=== PATIENT | female | born 1965 | race Caucasian/White ===

== ENCOUNTER 2016-10-01 12:10 | Inpatient (IN) | payer MEDICAID ==
--- NOTE | 2016-10-01 13:48 | ED PDOC ---
Upper Extremity Pain/Injury Time Seen by Provider: 10/01/16 12:56 Chief Complaint (Nursing): Upper Extremity Problem/Injury Chief Complaint (Provider): Right Arm Pain History Per: Patient History/Exam Limitations: no limitations Additional Complaint(s): Matilde Mendez, a 51 year old female, who has a past medical history of deep vein thrombosis and HIV presents to the ED complaining of right arm pain. The patient states that she went to the doctor but was then sent to the ER to be evaluated. As per daughter the patient was lifting a cart prior to the start of the pain. She states that the patient is not accustomed to lifting heavy things and may have pulled a muscle. Past Medical History Reviewed: Historical Data, Nursing Documentation, Vital Signs Vital Signs: Last Vital Signs Temp 98.9 F 10/01/16 12:45 Pulse 95 H 10/01/16 12:45 Resp 18 10/01/16 12:45 BP 109/78 10/01/16 12:45 Pulse Ox 99 10/01/16 12:45 - Medical History PMH: Deep Vein Thrombosis, HIV Other PMH: Neurolgia (face and Legs) - Surgical History Surgical History: No Surg Hx - Family History Family History: States: Unknown Family Hx - Home Medications Home Medications: Ambulatory Orders Medication Instructions Recorded Acetaminophen/Butalbital/Caf 1 tab PO Q4H PRN 10/01/16 [Fioricet] Atorvastatin [Lipitor] 20 mg PO HS 10/01/16 DULoxetine [Cymbalta] 60 mg PO HS 10/01/16 Elviteg/Vicenta/Emtric/Tenofo Ala 1 tab PO HS 10/01/16 [Genvoya Tablet] Gabapentin [Neurontin] 800 mg PO TID 10/01/16 Melatonin [Melatonin] 5 mg PO HS 10/01/16 Mirtazapine [Remeron] 30 mg PO HS 10/01/16 Montelukast [Singulair] 10 mg PO HS 10/01/16 QUEtiapine [Seroquel] 100 mg PO HS 10/01/16 Trazodone HCl [Trazodone HCl] 150 mg PO HS 10/01/16 Zolpidem [Ambien] 10 mg PO HS 10/01/16 hydrOXYzine Pamoate [Vistaril] 25 mg PO BID PRN 10/01/16 - Allergies Allergies/Adverse Reactions: Allergies Allergy/AdvReac Type Severity Reaction Status Date / Time No Known Allergies Allergy Unverified 09/29/12 09:54 Review of Systems Musculoskeletal: Positive for: Arm Pain (Right arm pain.) Physical Exam - Reviewed Nursing Documentation Reviewed: Yes Vital Signs Reviewed: Yes - Physical Exam Appears: Positive for: Non-toxic, No Acute Distress Skin: Positive for: Normal Color, Warm, Dry Eye Exam: Positive for: Normal appearance, EOMI, PERRL Cardiovascular/Chest: Positive for: Regular Rate, Rhythm, Chest Non Tender. Negative for: Tachycardia Respiratory: Positive for: Normal Breath Sounds. Negative for: Wheezing, Respiratory Distress Extremity: Positive for: Capillary Refill (Capillary refills are normal in right arm.), Other (5/5 strength and tone of right arm; Good pulses bilaterally ; Bruising on forearm.). Negative for: Tenderness, Pedal Edema, Deformity Neurologic/Psych: Positive for: Alert, Oriented, Gait - Laboratory Results Result Diagrams: 10/01/16 17:50 10/01/16 17:50 - ECG O2 Sat by Pulse Oximetry: 99 (RA) Pulse Ox Interpretation: Normal Medical Decision Making Medical Decision Makin Initial Impression: 51 year old female presenting with right arm pain Initial Plan: * RAD elbow right * US duplex upper extremities-demonstrates DVT to baslic and cephlaic viens. * Reevaluation-stable in ED * pt will be admitted to family practice for DVT to right upper ext. Pt with normal creatine and BUN and GFR 1.5/kg ordered 117 of lovenox ordered for pt. Scribe Attestation Documented by Maria Isabel Owen acting as a scribe for Lynsey Linder PA-C. Scribe Attestation All medical record entries made by the Scribe were at my direction and personally dictated by me. I have reviewed the chart and agree that the record accurately reflects my personal performance of the history, physical exam, medical decision making, and the department course for this patient. I have also personally directed, reviewed, and agree with the discharge instructions and disposition. Disposition - Clinical Impression Clinical Impression: DVT of upper extremity (deep vein thrombosis) - Patient ED Disposition Is Patient to be Admitted: Yes - Disposition Disposition Time: 19:36 Condition: STABLE - Pt Status Changed To: Hospital Disposition Of: Inpatient - Admit Certification Admit to Inpatient:: After my assessment, the patient will require hospitalization for at least two midnights. This is because of the severity of symptoms shown, intensity of services needed, and/or the medical risk in this patient being treated as an outpatient. - POA Present On Arrival: Deep Vein Thrombosis / PE
--- NOTE | 2016-10-01 14:51 | RAD ---
PROCEDURE: Radiographs of the right elbow. HISTORY: elbow pain COMPARISON: No prior. FINDINGS: BONES: Normal. No fracture. JOINTS: Normal. No osteoarthritis. SOFT TISSUES: Normal. JOINT EFFUSION: None. OTHER FINDINGS: None. IMPRESSION: Unremarkable radiographs of the right elbow.
[2016-10-01 18:26] LABS: BASO # 0.1 K/uL (0.0-0.2); BASO % 0.9 % (0.0-2.0); EOS # 0.3 K/uL (0.0-0.7); EOS % 2.8 % (0.0-4.0); HEMOGLOBIN 12.4 g/dL (12.0-16.0); LYMPH # 2.3 K/uL (1.0-4.3); LYMPH % 26.4 % (20.0-40.0); MEAN CELL VOLUME 92.5 fl (81.0-99.0); MEAN CORPUSCULAR HEMOGLOBIN 30.3 pg (27.0-31.0); MEAN CORPUSCULAR HGB CONC 32.7 g/dL (33.0-37.0); MEAN PLATELET VOLUME 8.9 fl (7.2-11.7); MONO # 0.8 K/uL (0.0-0.8); MONO % 8.7 % (0.0-10.0); NEUT # 5.4 K/uL (1.8-7.0); NEUT % 61.2 % (50.0-75.0); RBC 4.1 Mil/uL (3.80-5.20); RED CELL DISTRIBUTION WIDTH 14.3 % (11.5-14.5); WHITE BLOOD COUNT 8.9 K/uL (4.8-10.8)
[2016-10-01 18:37] LABS: ALB/GLOB RATIO 1.3 (1.0-2.1); ALBUMIN 4.4 g/dL (3.5-5.0); ALT/SGPT 50 U/L (9-52); AST/SGOT 35 U/L (14-36); BLOOD UREA NITROGEN 12 mg/dl (7-17); CALCIUM 9.4 mg/dL (8.4-10.2); GFR AFRICAN-AMERICAN > 60; GFR NON-AFRICAN AMERICAN 58
--- NOTE | 2016-10-01 18:39 | RAD ---
HISTORY: medical clearance COMPARISON: None available. TECHNIQUE: Chest, one view. FINDINGS: LUNGS: No focal consolidation. Please note that chest x-ray has limited sensitivity for the detection of pulmonary masses. PLEURA: No significant pleural effusion identified. No definite pneumothorax . CARDIOVASCULAR: Borderline cardiomegaly. Atherosclerotic calcifications of the aorta. OSSEOUS STRUCTURES: No acute osseous abnormality identified. VISUALIZED UPPER ABDOMEN: Unremarkable. OTHER FINDINGS: None. IMPRESSION: No focal consolidation, significant pleural effusion, or definite pneumothorax identified.
[2016-10-01 18:42] LABS: PARTIAL THROMBOPLASTIN TIME 22.6 Seconds (25.6-37.1); PROTHROMBIN TIME 11.4 Seconds (9.8-13.1)
--- NOTE | 2016-10-01 18:47 | CP.PCM.HP ---
<Sandeep Tomlinson - Last Filed: 10/01/16 21:37> History of Present Illness - History of Present Illness History of Present Illness: 51 yo F with medical history of HIV (VL: 40, CD4: 747/39 [09/07/16]), spinal stenosis, anxiety, mood disorder, previous DVT presented to ED via [facility] due to right forearm pain. Patient states right forearm pain began 2 wks ago, 'out of nowhere'. Patient states she did carry groceries that day but no more than she does usually. Patient states she noted a bump on top of right wrist with pain. Patient had been evaluated by PCP at that time and instructed to continue to monitor. Patient was seen by Psych today, continued pain and increased to elbow with redness, referred to ED for further evaluation. Noted DVT of RUE. Patient states pain is still present. Patient denies sob, chest pain, palpitations, recent travel, recent trauma or surgeries. No fever, chills. Patient states DVT of bilateral extremities 7 yrs ago (unprovoked) treated with coumadin x 3 months at that time @ [facility]. Patient does states bilateral lower leg pain has been present for months though worse since last night. Patient relates pain as musculoskeletal in nature. No calf pain/tenderness/warmth/edema. Only medication change was ART 2 wks ago, though on reviewed of eCw symptoms were present prior to medication change. PMD: Dr. Lam PMHx: HIV (VL: 40, CD4: 747/39 [09/07/16]), spinal stenosis, anxiety, mood disorder, previous DVT (b/l LE) Meds: As per chart Allergies: Seasonal Surgical history: C-sections x 2 (, ) Family history: Remarkable for mother/grandmother with heart attacks which they from. Father with possible stroke? () Social hx: No drugs, etoh, tobacco use. Present on Admission - Present on Admission Any Indicators Present on Admission: Yes History of DVT/PE: Yes Review of Systems - Review of Systems All systems: reviewed and no additional remarkable complaints except (mentioned in HPI) Past Patient History - Past Medical History & Family History Past Medical History?: Yes - Past Social History Smoking Status: Never Smoked Alcohol: None Drugs: Denies - HEMATOLOGICAL/ONCOLOGICAL Hx Human Immunodeficiency Virus (HIV): Yes - PSYCHIATRIC Hx Substance Use: No - SURGICAL HISTORY Hx Section: Yes Meds Allergies/Adverse Reactions: Allergies Allergy/AdvReac Type Severity Reaction Status Date / Time No Known Allergies Allergy Unverified 09/29/12 09:54 Physical Exam - Constitutional Appears: Well, Non-toxic, No Acute Distress - Head Exam Head Exam: ATRAUMATIC, NORMAL INSPECTION, NORMOCEPHALIC - Eye Exam Eye Exam: EOMI, Normal appearance, PERRL - ENT Exam ENT Exam: Mucous Membranes Moist - Neck Exam Neck exam: Positive for: Normal Inspection - Respiratory Exam Respiratory Exam: Clear to Auscultation Bilateral, NORMAL BREATHING PATTERN. absent: Decreased Breath Sounds, Rhonchi, Wheezes, Respiratory Distress - Cardiovascular Exam Cardiovascular Exam: REGULAR RHYTHM, RRR, +S1, +S2 - GI/Abdominal Exam GI & Abdominal Exam: Normal Bowel Sounds, Soft. absent: Tenderness - Extremities Exam Extremities exam: Positive for: pedal pulses present. Negative for: calf tenderness, pedal edema Additional comments: right forearm with redness/palpable cord and tenderness from wrist to medial epicondyle. 2+ pulses. Cap refil normal - Neurological Exam Neurological exam: Alert, Oriented x3 - Psychiatric Exam Psychiatric exam: Normal Affect, Normal Mood - Skin Skin Exam: Dry, Intact, Normal Color, Warm Results - Vital Signs Recent Vital Signs: Last Vital Signs Temp 98.9 F 10/01/16 12:45 Pulse 95 H 10/01/16 12:45 Resp 18 10/01/16 12:45 BP 109/78 10/01/16 12:45 Pulse Ox 99 10/01/16 17:34 - Labs Result Diagrams: 10/01/16 17:50 10/01/16 17:50 Labs: Laboratory Results - last 24 hr 10/01/16 10/01/16 17:50 17:50 WBC 8.9 RBC 4.10 Hgb 12.4 Hct 37.9 MCV 92.5 MCH 30.3 MCHC 32.7 L RDW 14.3 Plt Count 287 MPV 8.9 Neut % (Auto) 61.2 Lymph % (Auto) 26.4 [place] % (Auto) 8.7 Eos % (Auto) 2.8 Baso % (Auto) 0.9 Neut # 5.4 Lymph # 2.3 [place] # 0.8 Eos # 0.3 Baso # 0.1 PT 11.4 INR 1.0 APTT 22.6 L Assessment & Plan (1) DVT of upper extremity (deep vein thrombosis) Status: Acute (2) HIV (human immunodeficiency virus infection) Status: Chronic (3) Anxiety Status: Chronic (4) Mood disorder Status: Chronic (5) Insomnia Status: Chronic - Assessment and Plan (Free Text) Assessment: 51 yo F with medical history of HIV (VL: 40, CD4: 747/39 [09/07/16]), spinal stenosis, anxiety, mood disorder, previous DVT with right forearm pain x 2 wks noted to have unprovoked DVT of RUE. Last pap smear date *June 25, 2015 - PAP(-)/HPV(-) Last mammogram date *October 03, 2015 - BI-RADS 2 Plan: (1) DVT of upper extremity (deep vein thrombosis) - US duplex upper extremities-demonstrates DVT to basilic and cephalic veins of RUE. - No chest pain/sob/tachycardia - pain x 2 wks - Hemodynamically stable at this time - s/p 117mg Lovenox in ED - c/w Lovenox 80mg q12h - Genetic studies ordered - Coag studies ordered - hcg, ua, and lipid panel ordered - Likely 2nd unprovoked episode, pending labs - Continue to monitor - Will obtain u/s of bilateral lower extremities due to increased pain x 1 day and history of DVT (2) HIV (human immunodeficiency virus infection) - VL: 40, CD4: 747/39 [09/07/16] - c/w home meds at this time (Genvoya) - Medication was changed after patient's symptoms began. (3) Anxiety - Continue home meds - Stable (4) Mood disorder - Continue home meds - Stable (5) Insomnia - Continue home meds - Held trazadone at this time <Mayi Cornell - Last Filed: 10/06/16 08:45> Results - Vital Signs Recent Vital Signs: Last Vital Signs Temp 98.5 F 10/04/16 07:43 Pulse 88 10/04/16 07:43 Resp 18 10/04/16 07:43 BP 88/64 L 10/04/16 07:43 Pulse Ox 98 10/04/16 07:43 - Labs Result Diagrams: 10/02/16 06:10 10/02/16 06:10 Labs: Laboratory Results - last 24 hr 10/02/16 10/02/16 06:00 06:10 Protein C Antigen 110 Anti-Phospholipid Intrp see note Anti-Cardiolipin IgG Ab <14 Anti-Cardiolipin IgA Ab <11 Anti-Cardiolipin IgM Ab <12 Assessment & Plan - Assessment and Plan (Free Text) Plan: ATTENDING NOTE ADDENDUM PATIENT SEEN AND EXAMINED. CASE DISCUSSED WITH RESIDENT. AGREE WITH FINDINGS AND PLAN.
[2016-10-01] MEDS ORDERED: Enoxaparin 150 mg Syringe SC ONE (20:00)
[2016-10-01] MEDS ORDERED: Enoxaparin 120 mg Syringe SC ONE (22:30)
[2016-10-02 07:10] LABS: BASO # 0.1 K/uL (0.0-0.2); EOS # 0.4 K/uL (0.0-0.7); EOS % 6.1 % (0.0-4.0); HEMOGLOBIN 11.9 g/dL (12.0-16.0); LYMPH # 1.8 K/uL (1.0-4.3); MEAN CELL VOLUME 92.2 fl (81.0-99.0); MEAN CORPUSCULAR HEMOGLOBIN 31.1 pg (27.0-31.0); MEAN CORPUSCULAR HGB CONC 33.8 g/dL (33.0-37.0); MEAN PLATELET VOLUME 8.9 fl (7.2-11.7); MONO # 0.5 K/uL (0.0-0.8); MONO % 8.3 % (0.0-10.0); NEUT # 3.4 K/uL (1.8-7.0); NEUT % 55.6 % (50.0-75.0); NRBC % 0.1 % (0.0-0.0); RBC 3.81 Mil/uL (3.80-5.20); RED CELL DISTRIBUTION WIDTH 13.6 % (11.5-14.5); WHITE BLOOD COUNT 6.2 K/uL (4.8-10.8)
[2016-10-02 07:34] LABS: INR 1.1 (0.9-1.2); PROTHROMBIN TIME 12.4 Seconds (9.8-13.1)
[2016-10-02 07:35] LABS: PARTIAL THROMBOPLASTIN TIME 37.4 Seconds (25.6-37.1)
[2016-10-02 07:40] LABS: BLOOD UREA NITROGEN 12 mg/dl (7-17); CALCIUM 8.7 mg/dL (8.4-10.2); GFR AFRICAN-AMERICAN > 60; GFR NON-AFRICAN AMERICAN 58; HDL CHOLESTEROL 36 MG/DL (30-70)
[2016-10-02 07:51] LABS: LDL CHOLESTEROL 111 mg/dL (0-129)
[2016-10-02] MEDS: Potassium Chloride 20 mEq ER Tab PO SCH (09:02)
[2016-10-02] MEDS: Enoxaparin 80 mg Syringe SC SCH ×2 (09:02→21:53)
--- NOTE | 2016-10-02 10:01 | PQF HIV ---
Dr. Rodriguez, Please clarify the status of patient's HIV: Asymptomatic versus Symptomatic Other (please specify) Clinically unable to determine Unknown Please also document all associated manifestations of HIV H and P: Impression includes: HIV: VL: 40, CD4: 747/39 [09/07/16]) This form is a permanent part of the medical record Clarification of your documentation is requested to better reflect the severity of illness and intensity of treatment of your patient. Indicators present [] Documented diagnosis of HIV [] CD4 count: [] [] Other: [] Location in the medical record that reflects the above clinical findings: [] Other Treatment Provided: [] PHYSICIAN'S RESPONSE If possible, based on your medical judgment, please clarify the clinical classification for this patient. [] Asymptomatic HIV Status: without any history of (or current) AIDS Defining Illnesses of HIV-Related Illness [] AIDS: Meets the current CDC Definition of AIDS HIV-Infected persons who HAVE OR HAVE HAD less than 200 CD4+ T-lymphocytes/uL or CD4+ T-lymphocyte percentage of total lymphocytes of less than 14, AND/OR an AIDS-Defining or HIV-Related Disease. See reverse side for examples. Per CDC publication Vol 60 RR-17 : Relating to the classification HIV Infection , once a patient is diagnosed with AIDS the diagnosis still stands even if, after treatment, the CD4+ T cell count rises above 200 per uL of blood or other AIDS-defining illnesses are cured. [] If unable to determine, please check the box, sign and date. In responding to this query, please exercise your independent professional judgment. The fact that a question is asked does not imply that any particular answer is desired or expected. Thank you for your clarification on this documentation. If you have any questions please call. * Thank you, Kerline Santoyo RN BSN ext. #[phone] The following are AIDS-Defining Illnesses or HIV-Related Diseases: Candidiasis of bronchi, trachea, or lungs Candidiasis, esophageal Cervical cancer, invasive * Coccidioidomycosis, disseminated or extrapulmonary Cryptococcosis, extrapulmonary Cryptosporidiosis, chronic intestinal (greater than 1 month's duration) Cytomegalovirus disease (other than liver, spleen, or nodes) Cytomegalovirus retinitis (with loss of vision) Encephalopathy, HIV-related Herpes simplex: chronic ulcer(s) (greater than 1 month's duration); or bronchitis, pneumonitis, or esophagitis Histoplasmosis, disseminated or extrapulmonary Isosporiasis, chronic intestinal (greater than 1 month's duration) Kaposi's sarcoma Lymphoma, Burkitt's (or equivalent term) Lymphoma, immunoblastic (or equivalent term) Lymphoma, primary, of brain Mycobacterium avium complex or M. 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
--- NOTE | 2016-10-02 10:18 | US ---
PROCEDURE: Ultrasound venous Doppler right upper extremity HISTORY: Right arm swelling hx of DVT COMPARISON: No prior similar study available for comparison. TECHNIQUE: Grayscale and color Doppler ultrasound venous Doppler examination of the right upper extremity was performed. FINDINGS: The right internal jugular subclavian axillary and brachial veins are patent demonstrate venous blood flow and compressibility. The mid and distal portions of the right basilic artery is noncompressible and demonstrates no blood flow suggestive of the vein thrombosis. The cephalic vein is also noncompressible. The right ulnar and radial veins are patent. IMPRESSION: Findings suggestive of venous thrombosis in the right cephalic and basilic veins. Otherwise the right internal jugular and right upper extremity veins are patent. Preliminary report was submitted by [facility].
[2016-10-02] MEDS: Apap-Butalbital-Caffeine 325-50-40mg Tab PO PRN ×2 (14:30→21:54)
--- NOTE | 2016-10-02 14:46 | US ---
Bilateral lower extremity ultrasound. Indication: Upper extremity DVT, history of prior lower extremity DVT Technique: Duplex ultrasound evaluation of the bilateral lower extremity Comparison: None available Findings: Right: Partially compressible right distal femoral vein. There is normal flow, compressibility, and augmentation of the right common femoral, proximal and mid femoral, and popliteal veins. The right posterior tibial veins appear patent. Left: There is normal flow, compressibility, and augmentation of the left common femoral, femoral, and popliteal veins. The left posterior tibial veins appear patent. Impression: Partially occlusive thrombus involving the right distal femoral vein. No evidence of deep venous thrombosis in the left lower extremity.
--- NOTE | 2016-10-02 15:26 | CP.PCM.CON ---
History of Present Illness - History of Present Illness History of Present Illness: Patient seen/examined. full consult to follow. recommend echocardiogram to assess LV function and intracardiac thrombus. no acute indication for catheter based thrombolysis. will benefit from hypercoagulable work up, HTN Past Patient History - Past Medical History & Family History Past Medical History?: Yes - Past Social History Smoking Status: Never Smoked - CARDIAC Hx Cardiac Disorders: No - PULMONARY Hx Respiratory Disorders: No - NEUROLOGICAL Hx Neurological Disorder: Yes Other/Comment: neuralgia (face and legs) - HEENT Hx HEENT Problems: No - RENAL Hx Chronic Kidney Disease: No - ENDOCRINE/METABOLIC Hx Endocrine Disorders: No - HEMATOLOGICAL/ONCOLOGICAL Hx Blood Disorders: Yes Hx Human Immunodeficiency Virus (HIV): Yes Other/Comment: DVT - INTEGUMENTARY Hx Dermatological Problems: No - MUSCULOSKELETAL/RHEUMATOLOGICAL Hx Musculoskeletal Disorders: No Hx Falls: No - GASTROINTESTINAL Hx Gastrointestinal Disorders: No - GENITOURINARY/GYNECOLOGICAL Hx Genitourinary Disorders: No - PSYCHIATRIC Hx Psychophysiologic Disorder: No Hx Substance Use: No - SURGICAL HISTORY Hx Surgeries: Yes Hx Section: Yes (x2) - ANESTHESIA Hx Anesthesia: Yes Hx Anesthesia Reactions: No Hx Malignant Hyperthermia: No Meds Allergies/Adverse Reactions: Allergies Allergy/AdvReac Type Severity Reaction Status Date / Time No Known Allergies Allergy Unverified 09/29/12 09:54 - Medications Medications: Current Medications Acetaminophen/Butalbital/Caffeine (Fioricet) 1 tab PO Q4H PRN PRN Reason: Migraine headache Last Admin: 10/02/16 14:30 Dose: 1 tab Atorvastatin Calcium (Lipitor) 20 mg PO [facility] Last Admin: 10/01/16 22:44 Dose: 20 mg Docusate Sodium (Colace) 100 mg PO BID PRN PRN Reason: Constipation Duloxetine HCl (Cymbalta) 60 mg PO [facility] Last Admin: 10/01/16 22:44 Dose: 60 mg Enoxaparin Sodium (Lovenox) 80 mg SC Q12 COUNT INCLUDES THE [facility] PRN Reason: Protocol Last Admin: 10/02/16 09:02 Dose: 80 mg Gabapentin (Neurontin) 800 mg PO TID COUNT INCLUDES THE [facility] Last Admin: 10/02/16 14:33 Dose: 800 mg Home Med (Elviteg/Vicenta/Emtric/Tenofo Ala [Genvoya Tablet]) 1 tab PO [facility] Home Med (Melatonin [Melatonin]) 5 mg PO HS COUNT INCLUDES THE [facility] Hydroxyzine Pamoate (Vistaril) 25 mg PO BID PRN PRN Reason: Itching / Pruritus Mirtazapine (Remeron) 30 mg PO HS COUNT INCLUDES THE [facility] Last Admin: 10/01/16 22:44 Dose: 30 mg Montelukast Sodium (Singulair) 10 mg PO HS COUNT INCLUDES THE [facility] Last Admin: 10/01/16 22:44 Dose: 10 mg Potassium Chloride (K-Dur 20 Meq Er Tab) 20 meq PO DAILY COUNT INCLUDES THE [facility] Last Admin: 10/02/16 09:02 Dose: 20 meq Quetiapine Fumarate (Seroquel) 100 mg PO HS COUNT INCLUDES THE [facility] Last Admin: 10/01/16 22:44 Dose: 100 mg Tramadol HCl (Ultram) 50 mg PO Q6 PRN PRN Reason: Pain, moderate (4-7) Zolpidem Tartrate (Ambien) 5 mg PO HS PRN PRN Reason: Insomnia Last Admin: 10/01/16 22:43 Dose: 5 mg Results - Vital Signs Recent Vital Signs: Last Vital Signs Temp 98.2 F 10/02/16 08:18 Pulse 77 10/02/16 08:18 Resp 20 10/02/16 08:18 BP 114/78 10/02/16 08:18 Pulse Ox 99 10/02/16 08:18 - Labs Result Diagrams: 10/02/16 06:10 10/02/16 06:10 Labs: Laboratory Results - last 24 hr 10/01/16 10/01/16 10/01/16 17:50 17:50 17:50 WBC 8.9 RBC 4.10 Hgb 12.4 Hct 37.9 MCV 92.5 MCH 30.3 MCHC 32.7 L RDW 14.3 Plt Count 287 MPV 8.9 Neut % (Auto) 61.2 Lymph % (Auto) 26.4 [place] % (Auto) 8.7 Eos % (Auto) 2.8 Baso % (Auto) 0.9 Neut # 5.4 Lymph # 2.3 [place] # 0.8 Eos # 0.3 Baso # 0.1 PT 11.4 INR 1.0 APTT 22.6 L Sodium 143 Potassium 4.1 Chloride 111 H Carbon Dioxide 21 L Anion Gap 15 BUN 12 Creatinine 1.0 Est GFR ( Amer) > 60 Est GFR (Non-Af Amer) 58 Random Glucose 94 Calcium 9.4 Total Bilirubin 0.4 AST 35 ALT 50 Alkaline Phosphatase 79 Total Protein 7.9 Albumin 4.4 Globulin 3.5 Albumin/Globulin Ratio 1.3 Triglycerides Cholesterol LDL Cholesterol Direct HDL Cholesterol Serum HCG, Qual 10/01/16 10/02/16 10/02/16 21:45 06:10 06:10 WBC 6.2 RBC 3.81 Hgb 11.9 L Hct 35.2 MCV 92.2 MCH 31.1 H MCHC 33.8 RDW 13.6 Plt Count 274 MPV 8.9 Neut % (Auto) 55.6 Lymph % (Auto) 29.0 [place] % (Auto) 8.3 Eos % (Auto) 6.1 H Baso % (Auto) 1.0 Neut # 3.4 Lymph # 1.8 [place] # 0.5 Eos # 0.4 Baso # 0.1 PT 12.4 INR 1.1 APTT 37.4 H D Sodium Potassium Chloride Carbon Dioxide Anion Gap BUN Creatinine Est GFR ( Amer) Est GFR (Non-Af Amer) Random Glucose Calcium Total Bilirubin AST ALT Alkaline Phosphatase Total Protein Albumin Globulin Albumin/Globulin Ratio Triglycerides Cholesterol LDL Cholesterol Direct HDL Cholesterol Serum HCG, Qual Negative 10/02/16 06:10 WBC RBC Hgb Hct MCV MCH MCHC RDW Plt Count MPV Neut % (Auto) Lymph % (Auto) [place] % (Auto) Eos % (Auto) Baso % (Auto) Neut # Lymph # [place] # Eos # Baso # PT INR APTT Sodium 142 Potassium 3.5 L Chloride 112 H Carbon Dioxide 23 Anion Gap 11 BUN 12 Creatinine 1.0 Est GFR ( Amer) > 60 Est GFR (Non-Af Amer) 58 Random Glucose 96 Calcium 8.7 Total Bilirubin AST ALT Alkaline Phosphatase Total Protein Albumin Globulin Albumin/Globulin Ratio Triglycerides 362 H Cholesterol 215 H LDL Cholesterol Direct 111 HDL Cholesterol 36 Serum HCG, Qual
--- NOTE | 2016-10-02 15:26 | CP.PCM.CON ---
History of Present Illness - History of Present Illness History of Present Illness: I was asked to evaluate patient by the primary team. Feliz is a 51 year old female with PMH HIV, HTN, previous LE DVT who presenst with L arm pain. Patient was found to have DVT of the R UE. She was also found to have LLE DVT. The patient was started on lovenox. She denies chest pain or dyspnea. Review of Systems - Constitutional Constitutional: absent: As Per HPI, Anorexia, Chills, Daytime Sleepiness, Excessive Sweating, Fatigue, Fever, Frequent Falls, Headache, Increased Appetite , Lethargy, Malaise, Night Sweats, Snoring, Sleep Apnea, Weight Gain, Weight Loss, Weakness, Other - EENT Eyes: absent: As Per HPI, Blind Spots, Blurred Vision, Change in Vision, Decreased Night Vision, Diplopia, Discharge, Dry Eye, Exophthalmos, Floaters, Irritation, Itchy Eyes, Loss of Peripheral Vision, Pain, Photophobia, Requires Corrective Lenses, Sees Flashes, Spots in Vision, Tunnel Vision, Other Visual Disturbances, Loss of Vision, Other Ears: absent: As Per HPI, Decreased Hearing, Ear Discharge, Ear Pain, Tinnitus, Abnormal Hearing, Disequilibrium, Dizziness, Other Nose/Mouth/Throat: absent: As Per HPI, Epistaxis, Nasal Congestion, Nasal Discharge, Nasal Obstruction, Nasal Trauma, Nose Pain, Post Nasal Drip, Sinus Pain, Sinus Pressure, Bleeding Gums, Change in Voice, Dental Pain, Dry Mouth, Dysphagia, Halitosis, Hoarsness, Lip Swelling, Mouth Lesions, Mouth Pain, Odynophagia, Sore Throat, Throat Swelling, Tongue Swelling, Facial Pain, Neck Pain, Neck Mass, Other - Cardiovascular Cardiovascular: absent: As Per HPI, Acrocyanosis, Chest Pain, Chest Pain at Rest , Chest Pain with Activity, Claudication, Diaphoresis, Dyspnea, Dyspnea on Exertion, Edema, Irregular Heart Rhythm, Pain Radiating to Arm/Neck/Jaw, Leg Edema, Leg Ulcers, Lightheadedness, Orthopnea, Palpitations, Paroxysmal Nocturnal Dyspnea, Pedal Edema, Radiating Pain, Rapid Heart Rate, Slow Heart Rate, Syncope, Other - Respiratory Respiratory: absent: As Per HPI, Cough, Dyspnea, Hemoptysis, Dyspnea on Exertion , Wheezing, Snoring, Stridor, Pain on Inspiration, Chest Congestion, Excessive Mucous Production, Change in Mucous Color, Pain with Coughing, Other - Gastrointestinal Gastrointestinal: absent: As Per HPI, Abdominal Pain, Belching, Bloating, Change in Bowel Habits, Change in Stool Character, Coffee Ground Emesis, Constipation, Cramping, Diarrhea, Dyspepsia, Dysphagia, Early Satiety, Excessive Flatus, Fecal Incontinence, Heartburn, Hematemesis, Hematochezia, Loose Stools, Melena, Nausea, Odynophagia, Temesmus, Vomiting, Other - Genitourinary Genitourinary: absent: As Per HPI, Change in Urinary Stream, Difficulty Urinating, Dysuria, Flank Pain, Hematuria, Pyuria, Nocturia, Urinary Incontinence, Urinary Frequency, Urinary Hesitance, Urinary Urgency, Voiding Freq/Small Amts, Freq UTI, Hx Renal/Bladder Calculi, Hx /Renal Surgery, Bladder Distension, Other - Musculoskeletal Musculoskeletal: Radiating Pain into Limb - Integumentary Integumentary: absent: As Per HPI, Acne, Alopecia, Bleeding Lesions, Change in Hair, Change in Nails, Change in Pigmentation, Changing Lesions, Dry Skin, Erythema, Furuncle, Hirsutism, Lesions, New Lesions, Non-Healing Lesions, Photosensitivity, Pruritus, Rash, Skin Pain, Skin Ulcer, Sores, Striae, Swelling , Unusual Bruising, Wounds, Jaundice, Other - Neurological Neurological: absent: As Per HPI, Abnormal Gait, Abnormal Hearing, Abnormal Movements, Abnormal Speech, Behavioral Changes, Burning Sensations, Confusion, Convulsions, Disequilibrium, Dizziness, Numbness, Focal Weakness, Frequent Falls , Headaches, Lack of Coordination, Loss of Vision, Memory Loss, Paresthesias, Radicular Pain, Restless Legs, Sensory Deficit, Syncope, Tingling, Tremor, Vertigo, Weakness, Other Visual Disturbances, Other - Psychiatric Psychiatric: absent: As Per HPI, Abnormal Sleep Pattern, Anhedonia, Anxiety, Auditory Hallucinations, Behavioral Changes, Change in Appetite, Change in Libido, Confusion, Depression, Difficulty Concentrating, Hallucinations, Homicidal Ideation, Hopelessness, Irritability, Memory Loss, Mood Swings, Panic Attacks, Paranoia, Suicidal Ideation, Visual Hallucinations, Tactile Hallucinations, Other - Endocrine Endocrine: absent: As Per HPI, Change in Body Appearance, Change in Libido, Cold Intolorance, Deepening of Voice, Excessive Sweating, Fatigue, Flushing, Heat Intolorance, Increase in Ring/Shoe/Hat Size, Palpitations, Polydipsia, Polyphagia, Polyuria, Other - Hematologic/Lymphatic Hematologic: absent: As Per HPI, Easy Bleeding, Easy Bruising, Lymphadenopathy, Other Past Patient History - Past Medical History & Family History Past Medical History?: Yes - Past Social History Smoking Status: Never Smoked - CARDIAC Hx Cardiac Disorders: No - PULMONARY Hx Respiratory Disorders: No - NEUROLOGICAL Hx Neurological Disorder: Yes Other/Comment: neuralgia (face and legs) - HEENT Hx HEENT Problems: No - RENAL Hx Chronic Kidney Disease: No - ENDOCRINE/METABOLIC Hx Endocrine Disorders: No - HEMATOLOGICAL/ONCOLOGICAL Hx Blood Disorders: Yes Hx Human Immunodeficiency Virus (HIV): Yes Other/Comment: DVT - INTEGUMENTARY Hx Dermatological Problems: No - MUSCULOSKELETAL/RHEUMATOLOGICAL Hx Musculoskeletal Disorders: No Hx Falls: No - GASTROINTESTINAL Hx Gastrointestinal Disorders: No - GENITOURINARY/GYNECOLOGICAL Hx Genitourinary Disorders: No - PSYCHIATRIC Hx Psychophysiologic Disorder: No Hx Substance Use: No - SURGICAL HISTORY Hx Surgeries: Yes Hx Section: Yes (x2) - ANESTHESIA Hx Anesthesia: Yes Hx Anesthesia Reactions: No Hx Malignant Hyperthermia: No Meds Home Medications: Home Medication List Medication Instructions Recorded Confirmed Type Apixaban [Eliquis] 5 mg PO Q12 #60 tab 10/04/16 Rx Allergies/Adverse Reactions: Allergies Allergy/AdvReac Type Severity Reaction Status Date / Time No Known Allergies Allergy Unverified 09/29/12 09:54 - Medications Medications: Current Medications Acetaminophen/Butalbital/Caffeine (Fioricet) 1 tab PO Q4H PRN PRN Reason: Migraine headache Last Admin: 10/02/16 14:30 Dose: 1 tab Atorvastatin Calcium (Lipitor) 20 mg PO HS [facility] Last Admin: 10/01/16 22:44 Dose: 20 mg Docusate Sodium (Colace) 100 mg PO BID PRN PRN Reason: Constipation Duloxetine HCl (Cymbalta) 60 mg PO HS [facility] Last Admin: 10/01/16 22:44 Dose: 60 mg Enoxaparin Sodium (Lovenox) 80 mg SC Q12 [facility] PRN Reason: Protocol Last Admin: 10/02/16 09:02 Dose: 80 mg Gabapentin (Neurontin) 800 mg PO TID [facility] Last Admin: 10/02/16 14:33 Dose: 800 mg Home Med (Elviteg/Vicenta/Emtric/Tenofo Ala [Genvoya Tablet]) 1 tab PO HS [facility] Home Med (Melatonin [Melatonin]) 5 mg PO HS [facility] Hydroxyzine Pamoate (Vistaril) 25 mg PO BID PRN PRN Reason: Itching / Pruritus Mirtazapine (Remeron) 30 mg PO HS [facility] Last Admin: 10/01/16 22:44 Dose: 30 mg Montelukast Sodium (Singulair) 10 mg PO HS [facility] Last Admin: 10/01/16 22:44 Dose: 10 mg Potassium Chloride (K-Dur 20 Meq Er Tab) 20 meq PO DAILY [facility] Last Admin: 10/02/16 09:02 Dose: 20 meq Quetiapine Fumarate (Seroquel) 100 mg PO HS [facility] Last Admin: 10/01/16 22:44 Dose: 100 mg Tramadol HCl (Ultram) 50 mg PO Q6 PRN PRN Reason: Pain, moderate (4-7) Zolpidem Tartrate (Ambien) 5 mg PO HS PRN PRN Reason: Insomnia Last Admin: 10/01/16 22:43 Dose: 5 mg Results - Vital Signs Recent Vital Signs: Last Vital Signs Temp 98.2 F 10/02/16 08:18 Pulse 77 10/02/16 08:18 Resp 20 10/02/16 08:18 BP 114/78 10/02/16 08:18 Pulse Ox 99 10/02/16 08:18 - Labs Result Diagrams: 10/02/16 06:10 10/02/16 06:10 Labs: Laboratory Results - last 24 hr 10/01/16 10/01/16 10/01/16 17:50 17:50 17:50 WBC 8.9 RBC 4.10 Hgb 12.4 Hct 37.9 MCV 92.5 MCH 30.3 MCHC 32.7 L RDW 14.3 Plt Count 287 MPV 8.9 Neut % (Auto) 61.2 Lymph % (Auto) 26.4 [place] % (Auto) 8.7 Eos % (Auto) 2.8 Baso % (Auto) 0.9 Neut # 5.4 Lymph # 2.3 [place] # 0.8 Eos # 0.3 Baso # 0.1 PT 11.4 INR 1.0 APTT 22.6 L Sodium 143 Potassium 4.1 Chloride 111 H Carbon Dioxide 21 L Anion Gap 15 BUN 12 Creatinine 1.0 Est GFR ( Amer) > 60 Est GFR (Non-Af Amer) 58 Random Glucose 94 Calcium 9.4 Total Bilirubin 0.4 AST 35 ALT 50 Alkaline Phosphatase 79 Total Protein 7.9 Albumin 4.4 Globulin 3.5 Albumin/Globulin Ratio 1.3 Triglycerides Cholesterol LDL Cholesterol Direct HDL Cholesterol Serum HCG, Qual 10/01/16 10/02/16 10/02/16 21:45 06:10 06:10 WBC 6.2 RBC 3.81 Hgb 11.9 L Hct 35.2 MCV 92.2 MCH 31.1 H MCHC 33.8 RDW 13.6 Plt Count 274 MPV 8.9 Neut % (Auto) 55.6 Lymph % (Auto) 29.0 [place] % (Auto) 8.3 Eos % (Auto) 6.1 H Baso % (Auto) 1.0 Neut # 3.4 Lymph # 1.8 [place] # 0.5 Eos # 0.4 Baso # 0.1 PT 12.4 INR 1.1 APTT 37.4 H D Sodium Potassium Chloride Carbon Dioxide Anion Gap BUN Creatinine Est GFR ( Amer) Est GFR (Non-Af Amer) Random Glucose Calcium Total Bilirubin AST ALT Alkaline Phosphatase Total Protein Albumin Globulin Albumin/Globulin Ratio Triglycerides Cholesterol LDL Cholesterol Direct HDL Cholesterol Serum HCG, Qual Negative 10/02/16 06:10 WBC RBC Hgb Hct MCV MCH MCHC RDW Plt Count MPV Neut % (Auto) Lymph % (Auto) [place] % (Auto) Eos % (Auto) Baso % (Auto) Neut # Lymph # [place] # Eos # Baso # PT INR APTT Sodium 142 Potassium 3.5 L Chloride 112 H Carbon Dioxide 23 Anion Gap 11 BUN 12 Creatinine 1.0 Est GFR ( Amer) > 60 Est GFR (Non-Af Amer) 58 Random Glucose 96 Calcium 8.7 Total Bilirubin AST ALT Alkaline Phosphatase Total Protein Albumin Globulin Albumin/Globulin Ratio Triglycerides 362 H Cholesterol 215 H LDL Cholesterol Direct 111 HDL Cholesterol 36 Serum HCG, Qual - EKG Data EKG Interpreted by: Myself EKG shows normal: Sinus rhythm Assessment & Plan (1) Hypercoagulable state Assessment and Plan: will need work up. She has a previous history of venous thrombosis. Status: Acute (2) DVT of upper extremity (deep vein thrombosis) Assessment and Plan: will conintue kendrickx. there is no current neurovascular compromise to the arm. There is no indication for catheter based therapy at this time. Status: Acute (3) HIV (human immunodeficiency virus infection) Assessment and Plan: continue treatment Status: Chronic
--- NOTE | 2016-10-02 15:52 | CP.PCM.PN ---
<Apple Small - Last Filed: 10/02/16 15:50> Subjective - Date & Time of Evaluation Date of Evaluation: 10/02/16 Time of Evaluation: 07:35 - Subjective Subjective: Patient seen and examined at bedside, reports her RUE pain persists and is a 6/ 10, also has a headache, and complaint of no stool output in 2 days. Denies chest pain, SOB, weakness or dizziness. Tolerating PO diet. Has normal urine output. Objective - Vital Signs/Intake and Output Vital Signs (last 24 hours): Temp Pulse Resp BP Pulse Ox 97.7 F 86 16 125/85 99 10/02/16 15:41 10/02/16 15:41 10/02/16 15:41 10/02/16 15:41 10/02/16 15:41 - Medications Medications: Current Medications Acetaminophen/Butalbital/Caffeine (Fioricet) 1 tab PO Q4H PRN PRN Reason: Migraine headache Last Admin: 10/02/16 14:30 Dose: 1 tab Atorvastatin Calcium (Lipitor) [address] [facility] Last Admin: 10/01/16 22:44 Dose: 20 mg Docusate Sodium (Colace) 100 mg PO BID PRN PRN Reason: Constipation Duloxetine HCl (Cymbalta) [address] [facility] Last Admin: 10/01/16 22:44 Dose: 60 mg Enoxaparin Sodium (Lovenox) 80 mg SC Q12 [facility] PRN Reason: Protocol Last Admin: 10/02/16 09:02 Dose: 80 mg Gabapentin (Neurontin) 800 mg PO TID [facility] Last Admin: 10/02/16 14:33 Dose: 800 mg Home Med (Elviteg/Vicenta/Emtric/Tenofo Ala [Genvoya Tablet]) [address] [facility] Home Med (Melatonin [Melatonin]) [address] [facility] Hydroxyzine Pamoate (Vistaril) 25 mg PO BID PRN PRN Reason: Itching / Pruritus Mirtazapine (Remeron) [address] [facility] Last Admin: 10/01/16 22:44 Dose: 30 mg Montelukast Sodium (Singulair) [address] [facility] Last Admin: 10/01/16 22:44 Dose: 10 mg Potassium Chloride (K-Dur 20 Meq Er Tab) 20 meq PO DAILY [facility] Last Admin: 10/02/16 09:02 Dose: 20 meq Quetiapine Fumarate (Seroquel) 100 mg PO HS [facility] Last Admin: 10/01/16 22:44 Dose: 100 mg Tramadol HCl (Ultram) 50 mg PO Q6 PRN PRN Reason: Pain, moderate (4-7) Zolpidem Tartrate (Ambien) 5 mg PO HS PRN PRN Reason: Insomnia Last Admin: 10/01/16 22:43 Dose: 5 mg - Labs Labs: 10/02/16 06:10 10/02/16 06:10 PT 12.4 Seconds (9.8-13.1) 10/02/16 06:10 INR 1.1 (0.9-1.2) 10/02/16 06:10 APTT 37.4 Seconds (25.6-37.1) H D 10/02/16 06:10 - Constitutional Appears: Non-toxic, No Acute Distress, Other (obese) - Head Exam Head Exam: ATRAUMATIC, NORMOCEPHALIC - Eye Exam Eye Exam: EOMI, PERRL - ENT Exam ENT Exam: Mucous Membranes Moist - Neck Exam Neck Exam: Full ROM. absent: Lymphadenopathy - Respiratory Exam Respiratory Exam: Clear to Ausculation Bilateral, NORMAL BREATHING PATTERN - Cardiovascular Exam Cardiovascular Exam: REGULAR RHYTHM, +S1, +S2 - GI/Abdominal Exam GI & Abdominal Exam: Soft (obese), Normal Bowel Sounds. absent: Tenderness - Extremities Exam Extremities Exam: Full ROM, Joint Swelling (right medial epicondyle area), Tenderness (of RUE from elbow to wrist, swelling and mild erythema at elbow, palpable cord along medial forearm ). absent: Pedal Edema - Back Exam Back Exam: absent: CVA tenderness (L), CVA tenderness (R) - Neurological Exam Neurological Exam: Alert, Awake, CN II-XII Intact, Oriented x3 - Psychiatric Exam Psychiatric exam: Normal Affect, Normal Mood - Skin Skin Exam: Dry, Intact Assessment and Plan - Assessment and Plan (Free Text) Assessment: 51 yo F with medical history of HIV (VL: 40, CD4: 747/39 [09/07/16]), spinal stenosis, anxiety, mood disorder, previous bilateral LE DVT now with acute moderate to severe pain/swelling in RUE. Imaging confirmed presence of acute unprovoked RUE superficial vein thrombosis and RLE DVT. Vascular on board, coag studies pending, patient is being anticoagulated and pain managed with PO meds. Plan: Superficial vein thrombosis of RUE - US duplex upper extremities: occlusive thrombus of right cephalic and right mid/distal basilic vein - No chest pain/sob/tachycardia - continue Lovenox 80mg q12h, pain management (warm compress, Tylenol, Ultram PRN) - Genetic studies ordered - Coag studies ordered - hcg, ua, and lipid panel ordered -Vascular surgery consulted-Dr. Worley: per conversation recommends Echo, proceed with coag studies -f/u Echo, labs DVT of right lower extremity -acute, PMHx of bilateral LE DVT's 8yrs ago - US duplex bilateral lower extremities: partially occlusive thrombus of right distal femoral vein -Vascular surgery consulted as above -lab studies as above Asymptomatic HIV (human immunodeficiency virus infection) -stable, chronic - VL: 40, CD4: 747/39 [09/07/16] - c/w home meds at this time (Genvoya) - Medication was changed after patient's symptoms began. Anxiety/Mood disorder - Stable, chronic - Continue home meds Insomnia - Continue home meds - Held trazadone at this time <Mayi Cornell - Last Filed: 10/03/16 09:29> Objective - Vital Signs/Intake and Output Vital Signs (last 24 hours): Temp Pulse Resp BP Pulse Ox 97.3 F L 96 H 20 108/76 97 10/03/16 08:46 10/03/16 08:46 10/03/16 08:46 10/03/16 08:46 10/03/16 08:46 - Medications Medications: Current Medications Acetaminophen/Butalbital/Caffeine (Fioricet) 1 tab PO Q4H PRN PRN Reason: Migraine headache Last Admin: 10/02/16 21:54 Dose: 1 tab Atorvastatin Calcium (Lipitor) 20 mg PO HS [facility] Last Admin: 10/02/16 21:58 Dose: 20 mg Docusate Sodium (Colace) 100 mg PO BID PRN PRN Reason: Constipation Duloxetine HCl (Cymbalta) 60 mg PO HS [facility] Last Admin: 10/02/16 21:59 Dose: 60 mg Enoxaparin Sodium (Lovenox) 80 mg SC Q12 [facility] PRN Reason: Protocol Last Admin: 10/03/16 08:36 Dose: 80 mg Gabapentin (Neurontin) 800 mg PO TID [facility] Last Admin: 10/03/16 08:35 Dose: 800 mg Home Med (Elviteg/Vicenta/Emtric/Tenofo Ala [Genvoya Tablet]) 1 tab PO HS [facility] Last Admin: 10/02/16 21:56 Dose: 1 tab Home Med (Melatonin [Melatonin]) 5 mg PO HS [facility] Home Med (Trazodone Hcl [Trazodone Hcl]) 150 mg PO HS PRN PRN Reason: Insomnia Hydroxyzine Pamoate (Vistaril) 25 mg PO BID PRN PRN Reason: Itching / Pruritus Last Admin: 10/02/16 21:58 Dose: 25 mg Mirtazapine (Remeron) 30 mg PO HS [facility] Last Admin: 10/02/16 21:58 Dose: 30 mg Montelukast Sodium (Singulair) 10 mg PO HS [facility] Last Admin: 10/02/16 21:59 Dose: 10 mg Potassium Chloride (K-Dur 20 Meq Er Tab) 20 meq PO DAILY [facility] Last Admin: 10/03/16 08:41 Dose: 20 meq Quetiapine Fumarate (Seroquel) 100 mg PO HS [facility] Last Admin: 10/02/16 21:57 Dose: 100 mg Tramadol HCl (Ultram) 50 mg PO Q6 PRN PRN Reason: Pain, moderate (4-7) Last Admin: 10/03/16 08:40 Dose: 50 mg Trazodone HCl (Desyrel) 150 mg PO HS PRN PRN Reason: Insomnia Zolpidem Tartrate (Ambien) 5 mg PO HS PRN PRN Reason: Insomnia Last Admin: 10/02/16 21:54 Dose: 5 mg - Labs Labs: 10/02/16 06:10 10/02/16 06:10 PT 12.4 Seconds (9.8-13.1) 10/02/16 06:10 INR 1.1 (0.9-1.2) 10/02/16 06:10 APTT 37.4 Seconds (25.6-37.1) H D 10/02/16 06:10 Assessment and Plan - Assessment and Plan (Free Text) Plan: ATTENDING NOTE - ADDENDUM PATIENT SEEN AND EXAMINED. CASE DISCUSSED WITH RESIDENT. AGREE WITH FINDINGS AND PLAN.
--- NOTE | 2016-10-02 16:29 | CARD ---
APPROVED REPORT EKG Measurement Heart [id number] <Conclusion> Normal sinus rhythm Cannot rule out Anterior infarct, age undetermined Abnormal ECG
[2016-10-02 17:11] LABS: SQUAMOUS EPITHIAL 1 /hpf (0-5); URINE BACTERIA RARE (<OCC); URINE BILIRUBIN NEGATIVE (NEGATIVE); URINE BLOOD NEGATIVE (NEGATIVE); URINE CLARITY CLEAR (Clear); URINE COLOR YELLOW (YELLOW); URINE GLUCOSE (UA) NEG (Normal); URINE LEUKOCYTE ESTERASE NEG Leu/uL (Negative); URINE NITRATE NEGATIVE (NEGATIVE); URINE PROTEIN NEGATIVE (NEGATIVE); URINE UROBILINOGEN 0.2-1.0 mg/dL (0.2-1.0)
[2016-10-02] MEDS: [UNRECOGNIZED DRUG - OTHER] PO SCH (21:56)
[2016-10-03] MEDS: Enoxaparin 80 mg Syringe SC SCH (08:36)
[2016-10-03] MEDS: Potassium Chloride 20 mEq ER Tab PO SCH (08:41)
--- NOTE | 2016-10-03 12:47 | CP.PCM.PN ---
<Kirstie Hartman - Last Filed: 10/03/16 12:49> Subjective - Date & Time of Evaluation Date of Evaluation: 10/03/16 Time of Evaluation: 09:00 - Subjective Subjective: Pt seen and evaluated at bedside, states upper extremity pain has improved, feels better overall. does not have any complaints. denies any sob, headache, dizziness, visual changes. nurses notes reviewed. Objective - Vital Signs/Intake and Output Vital Signs (last 24 hours): Temp Pulse Resp BP Pulse Ox 97.3 F L 96 H 20 108/76 97 10/03/16 08:46 10/03/16 08:46 10/03/16 08:46 10/03/16 08:46 10/03/16 08:46 - Medications Medications: Current Medications Acetaminophen/Butalbital/Caffeine (Fioricet) 1 tab PO Q4H PRN PRN Reason: Migraine headache Last Admin: 10/02/16 21:54 Dose: 1 tab Atorvastatin Calcium (Lipitor) 20 mg PO [facility] Last Admin: 10/02/16 21:58 Dose: 20 mg Docusate Sodium (Colace) 100 mg PO BID PRN PRN Reason: Constipation Duloxetine HCl (Cymbalta) 60 mg PO [facility] Last Admin: 10/02/16 21:59 Dose: 60 mg Enoxaparin Sodium (Lovenox) 80 mg SC Q12 [facility] PRN Reason: Protocol Last Admin: 10/03/16 08:36 Dose: 80 mg Gabapentin (Neurontin) 800 mg PO TID [facility] Last Admin: 10/03/16 08:35 Dose: 800 mg Home Med (Elviteg/Vicenta/Emtric/Tenofo Ala [Genvoya Tablet]) 1 tab PO [facility] Last Admin: 10/02/16 21:56 Dose: 1 tab Home Med (Melatonin [Melatonin]) 5 mg PO [facility] Home Med (Trazodone Hcl [Trazodone Hcl]) 150 mg PO HS PRN PRN Reason: Insomnia Hydroxyzine Pamoate (Vistaril) 25 mg PO BID PRN PRN Reason: Itching / Pruritus Last Admin: 10/02/16 21:58 Dose: 25 mg Mirtazapine (Remeron) 30 mg PO [facility] Last Admin: 10/02/16 21:58 Dose: 30 mg Montelukast Sodium (Singulair) 10 mg PO HS [facility] Last Admin: 10/02/16 21:59 Dose: 10 mg Potassium Chloride (K-Dur 20 Meq Er Tab) 20 meq PO DAILY [facility] Last Admin: 10/03/16 08:41 Dose: 20 meq Quetiapine Fumarate (Seroquel) 100 mg PO HS [facility] Last Admin: 10/02/16 21:57 Dose: 100 mg Tramadol HCl (Ultram) 50 mg PO Q6 PRN PRN Reason: Pain, moderate (4-7) Last Admin: 10/03/16 08:40 Dose: 50 mg Trazodone HCl (Desyrel) 150 mg PO HS PRN PRN Reason: Insomnia Zolpidem Tartrate (Ambien) 5 mg PO HS PRN PRN Reason: Insomnia Last Admin: 10/02/16 21:54 Dose: 5 mg - Labs Labs: 10/02/16 06:10 10/02/16 06:10 PT 12.4 Seconds (9.8-13.1) 10/02/16 06:10 INR 1.1 (0.9-1.2) 10/02/16 06:10 APTT 37.4 Seconds (25.6-37.1) H D 10/02/16 06:10 - Constitutional Appears: Non-toxic, No Acute Distress - Head Exam Head Exam: NORMOCEPHALIC - Eye Exam Eye Exam: Normal appearance - ENT Exam ENT Exam: Mucous Membranes Moist - Respiratory Exam Respiratory Exam: Clear to Ausculation Bilateral, NORMAL BREATHING PATTERN. absent: Rhonchi, Wheezes - Cardiovascular Exam Cardiovascular Exam: REGULAR RHYTHM, +S1, +S2 - GI/Abdominal Exam GI & Abdominal Exam: Soft, Normal Bowel Sounds. absent: Tenderness - Extremities Exam Extremities Exam: absent: Calf Tenderness, Pedal Edema Additional comments: RUE: Joint Swelling improved (right medial epicondyle area), mild tenderness ( of RUE from elbow to wrist, swelling and mild erythema at elbow, palpable cord along medial forearm - Neurological Exam Neurological Exam: Alert, Awake, Oriented x3 Assessment and Plan - Assessment and Plan (Free Text) Assessment: 51 yo F with medical history of HIV (VL: 40, CD4: 747/39 [09/07/16]), spinal stenosis, anxiety, mood disorder, previous bilateral LE DVT now admitted for acute unprovoked RUE superficial vein thrombosis and RLE DVT. Vascular on board , coag studies pending. Plan: Superficial vein thrombosis of RUE - US duplex upper extremities: occlusive thrombus of right cephalic and right mid/distal basilic vein - No chest pain/sob/tachycardia - continue Lovenox 80mg q12h, pain management (warm compress, Tylenol, Ultram PRN) - Genetic studies ordered - hcg, ua, and lipid panel ordered -Vascular surgery consulted-Dr. Worley: recommendations appreciate, awaiting further recommendation for PO anticoagulation -Pt went for Echo this morning, f/u results -Coag labs pending DVT of right lower extremity -acute, PMHx of bilateral LE DVT's 8yrs ago - US duplex bilateral lower extremities: partially occlusive thrombus of right distal femoral vein -Vascular surgery consulted as above -lab studies as above Asymptomatic HIV (human immunodeficiency virus infection) -stable, chronic - VL: 40, CD4: 747/39 [09/07/16] - c/w home meds at this time (Genvoya) - Medication was changed after patient's symptoms began. Anxiety/Mood disorder - Stable, chronic - Continue home meds Insomnia - Continue home meds - Held trazadone at this time <Mayi Cornell - Last Filed: 10/04/16 08:41> Objective - Vital Signs/Intake and Output Vital Signs (last 24 hours): Temp Pulse Resp BP Pulse Ox 98.5 F 88 18 88/64 L 98 10/04/16 07:43 10/04/16 07:43 10/04/16 07:43 10/04/16 07:43 10/04/16 07:43 - Medications Medications: Current Medications Acetaminophen/Butalbital/Caffeine (Fioricet) 1 tab PO Q4H PRN PRN Reason: Migraine headache Last Admin: 10/03/16 21:39 Dose: 1 tab Apixaban (Eliquis) 5 mg PO Q12 ARMANDO PRN Reason: Protocol Last Admin: 10/03/16 21:45 Dose: 5 mg Atorvastatin Calcium (Lipitor) 20 mg PO HS [facility] Last Admin: 10/03/16 21:44 Dose: 20 mg Docusate Sodium (Colace) 100 mg PO BID PRN PRN Reason: Constipation Duloxetine HCl (Cymbalta) 60 mg PO HS [facility] Last Admin: 10/03/16 21:46 Dose: 60 mg Gabapentin (Neurontin) 800 mg PO TID [facility] Last Admin: 10/03/16 16:51 Dose: 800 mg Home Med (Elviteg/Vicenta/Emtric/Tenofo Ala [Genvoya Tablet]) 1 tab PO HS [facility] Last Admin: 10/03/16 21:45 Dose: 1 tab Home Med (Trazodone Hcl [Trazodone Hcl]) 150 mg PO HS PRN PRN Reason: Insomnia Hydroxyzine Pamoate (Vistaril) 25 mg PO BID PRN PRN Reason: Itching / Pruritus Last Admin: 10/02/16 21:58 Dose: 25 mg Mirtazapine (Remeron) 30 mg PO HS [facility] Last Admin: 10/03/16 21:43 Dose: 30 mg Montelukast Sodium (Singulair) 10 mg PO HS [facility] Last Admin: 10/03/16 21:44 Dose: 10 mg Potassium Chloride (K-Dur 20 Meq Er Tab) 20 meq PO DAILY [facility] Last Admin: 10/03/16 08:41 Dose: 20 meq Quetiapine Fumarate (Seroquel) 100 mg PO HS [facility] Last Admin: 10/03/16 21:42 Dose: 100 mg Tramadol HCl (Ultram) 50 mg PO Q6 PRN PRN Reason: Pain, moderate (4-7) Last Admin: 10/03/16 23:00 Dose: 50 mg Trazodone HCl (Desyrel) 150 mg PO HS PRN PRN Reason: Insomnia Zolpidem Tartrate (Ambien) 5 mg PO HS PRN PRN Reason: Insomnia Last Admin: 10/03/16 23:00 Dose: 5 mg - Labs Labs: 10/02/16 06:10 10/02/16 06:10 PT 12.4 Seconds (9.8-13.1) 10/02/16 06:10 INR 1.1 (0.9-1.2) 10/02/16 06:10 APTT 37.4 Seconds (25.6-37.1) H D 10/02/16 06:10 Assessment and Plan - Assessment and Plan (Free Text) Assessment: ATTENDING NOTE - ADDENDUM PATIENT SEEN AND EXAMINED. CASE DISCUSSED WITH RESIDENT. AGREE WITH FINDINGS AND PLAN. AWAITING FOR VASCULAR FURTHER INPUT REGARDING ANTICOAGULATION DURATION AND WHICH MED TO USE. STILL ON LOVENOX.
--- NOTE | 2016-10-03 15:37 | CP.PCM.PN ---
Subjective - Date & Time of Evaluation Date of Evaluation: 10/03/16 Time of Evaluation: 15:20 - Subjective Subjective: no new complaints. Objective - Vital Signs/Intake and Output Vital Signs (last 24 hours): Temp Pulse Resp BP Pulse Ox 97.3 F L 96 H 20 108/76 97 10/03/16 08:46 10/03/16 08:46 10/03/16 08:46 10/03/16 08:46 10/03/16 08:46 - Medications Medications: Current Medications Acetaminophen/Butalbital/Caffeine (Fioricet) 1 tab PO Q4H PRN PRN Reason: Migraine headache Last Admin: 10/02/16 21:54 Dose: 1 tab Apixaban (Eliquis) 5 mg PO BID [facility] PRN Reason: Protocol Atorvastatin Calcium (Lipitor) 20 mg PO HS [facility] Last Admin: 10/02/16 21:58 Dose: 20 mg Docusate Sodium (Colace) 100 mg PO BID PRN PRN Reason: Constipation Duloxetine HCl (Cymbalta) 60 mg PO [facility] Last Admin: 10/02/16 21:59 Dose: 60 mg Gabapentin (Neurontin) 800 mg PO TID [facility] Last Admin: 10/03/16 12:47 Dose: 800 mg Home Med (Elviteg/Vicenta/Emtric/Tenofo Ala [Genvoya Tablet]) 1 tab PO [facility] Last Admin: 10/02/16 21:56 Dose: 1 tab Home Med (Trazodone Hcl [Trazodone Hcl]) 150 mg PO HS PRN PRN Reason: Insomnia Hydroxyzine Pamoate (Vistaril) 25 mg PO BID PRN PRN Reason: Itching / Pruritus Last Admin: 10/02/16 21:58 Dose: 25 mg Mirtazapine (Remeron) 30 mg PO [facility] Last Admin: 10/02/16 21:58 Dose: 30 mg Montelukast Sodium (Singulair) 10 mg PO [facility] Last Admin: 10/02/16 21:59 Dose: 10 mg Potassium Chloride (K-Dur 20 Meq Er Tab) 20 meq PO DAILY [facility] Last Admin: 10/03/16 08:41 Dose: 20 meq Quetiapine Fumarate (Seroquel) 100 mg PO [facility] Last Admin: 10/02/16 21:57 Dose: 100 mg Tramadol HCl (Ultram) 50 mg PO Q6 PRN PRN Reason: Pain, moderate (4-7) Last Admin: 10/03/16 08:40 Dose: 50 mg Trazodone HCl (Desyrel) 150 mg PO HS PRN PRN Reason: Insomnia Zolpidem Tartrate (Ambien) 5 mg PO HS PRN PRN Reason: Insomnia Last Admin: 10/02/16 21:54 Dose: 5 mg - Labs Labs: 10/02/16 06:10 10/02/16 06:10 PT 12.4 Seconds (9.8-13.1) 10/02/16 06:10 INR 1.1 (0.9-1.2) 10/02/16 06:10 APTT 37.4 Seconds (25.6-37.1) H D 10/02/16 06:10 - Constitutional Appears: Non-toxic - Head Exam Head Exam: NORMAL INSPECTION - Eye Exam Eye Exam: Normal appearance - ENT Exam ENT Exam: Mucous Membranes Moist - Neck Exam Neck Exam: Full ROM - Respiratory Exam Respiratory Exam: Decreased Breath Sounds - Cardiovascular Exam Cardiovascular Exam: REGULAR RHYTHM - GI/Abdominal Exam GI & Abdominal Exam: Normal Bowel Sounds - Rectal Exam Rectal Exam: Deferred - Extremities Exam Extremities Exam: absent: Pedal Edema - Back Exam Back Exam: NORMAL INSPECTION - Neurological Exam Neurological Exam: Alert - Psychiatric Exam Psychiatric exam: Normal Affect Assessment and Plan (1) DVT of upper extremity (deep vein thrombosis) Assessment & Plan: I reviewed the echocardiogram. Normal left ventricular function wthout valvular dysfnction. recommend oral therapy with Eliquis. medical therapy Status: Acute
--- NOTE | 2016-10-03 18:43 | CARD ---
APPROVED REPORT EXAM: Two-dimensional and M-mode echocardiogram with Doppler and color Doppler. Other Information Quality : GoodRhythm : NSR INDICATION RUE and RLE DVT 2D DIMENSIONS RVDd2.03 (2.9-3.5cm)Left Atrium (2D)2.59 (1.6-4.0cm) IVSd1.07 (0.7-1.1cm)Aortic Root (2D)2.78 (2.0-3.7cm) LVDd3.77 (3.9-5.9cm)PWd1.14 (0.7-1.1cm) IVSs1.57 (0.8-1.2cm)LVDs2.80 (2.5-4.0cm) FS (%) 25.7 %PWs1.23 (0.8-1.2cm) LVEF (%)59.0 (>50%) M-Mode DIMENSIONS Left Atrium (MM)2.52 (2.5-4.0cm)IVSd1.08 (0.7-1.1cm) Aortic Root2.73 (2.2-3.7cm)LVDd4.53 (4.0-5.6cm) Aortic Cusp Exc.2.06 (1.5-2.0cm)PWd1.13 (0.7-1.1cm) MV EPSS0.7 (<0.5cm)IVSs1.52 cm FS (%) 22 %LVDs3.53 (2.0-3.8cm) PWs1.31 cm Mitral Valve E/A ratio0.0 TDI Lateral E' Peak V9.61cm/sMedial E' Peak V8.56cm/sE/Lateral E'0.0 E/Medial E'0.0 Tricuspid Valve TR Peak [id number] [id number] Peak Gr.15mmHg [id number] LEFT VENTRICLE The left ventricle is normal size. There is mild to moderate concentric left ventricular hypertrophy. The left ventricular function is normal. The left ventricular ejection fraction is within the normal range. There is normal LV segmental wall motion. Transmitral Doppler flow pattern is Grade I-abnormal relaxation pattern. RIGHT VENTRICLE The right ventricle is normal size. There is normal right ventricular wall thickness. The right ventricular systolic function is normal. ATRIA The left atrium size is normal. The right atrium size is normal. AORTIC VALVE The aortic valve is mildly thickened. No aortic regurgitation is present. There is no aortic valvular stenosis. MITRAL VALVE The mitral valve is mildly thickened. There is no mitral valve stenosis. There is no mitral valve regurgitation noted. TRICUSPID VALVE The tricuspid valve is normal in structure There is trace tricuspid regurgitation. PULMONIC VALVE The pulmonary valve is normal in structure and function. There is no pulmonic valvular regurgitation. GREAT VESSELS The aortic root is normal in size. The IVC is normal in size and collapses >50% with inspiration. PERICARDIAL EFFUSION There is a small circumferential pericardial effusion. <Conclusion> The left ventricle is normal size. There is mild to moderate concentric left ventricular hypertrophy. The left ventricular function is normal. The left ventricular ejection fraction is within the normal range. There is normal LV segmental wall motion. Transmitral Doppler flow pattern is Grade I-abnormal relaxation pattern. There is a small circumferential pericardial effusion.
[2016-10-03] MEDS: Apap-Butalbital-Caffeine 325-50-40mg Tab PO PRN (21:39)
[2016-10-03] MEDS: [UNRECOGNIZED DRUG - OTHER] PO SCH (21:45)
[2016-10-04 00:56] VITALS: TEMP 98.5
[2016-10-04 07:44] VITALS: BP 88/64; PULSE 88; RESP 18; O2SAT 98
[2016-10-04] MEDS: Potassium Chloride 20 mEq ER Tab PO SCH (10:06)
--- NOTE | 2016-10-04 11:30 | CP.PCM.DIS ---
<Apple Small - Last Filed: 10/04/16 14:50> Provider - Provider Date of Admission: 10/01/16 17:31 Attending physician: Riana Rodriguez MD Primary care physician: Dr. Collier Consults: Dr. Worley-vascular Time Spent in preparation of Discharge (in minutes): 30 Diagnosis - Discharge Diagnosis (1) Venous thromboembolism (VTE) during current hospitalization Status: Acute Priority: Low (2) Dvt femoral (deep venous thrombosis) Status: Acute Priority: Medium (3) HIV (human immunodeficiency virus infection) Status: Chronic Priority: Low Hospital Course - Lab Results Lab Results: Most Recent Lab Values WBC 6.2 K/uL (4.8-10.8) 10/02/16 06:10 RBC 3.81 Mil/uL (3.80-5.20) 10/02/16 06:10 Hgb 11.9 g/dL (12.0-16.0) L 10/02/16 06:10 Hct 35.2 % (34.0-47.0) 10/02/16 06:10 MCV 92.2 fl (81.0-99.0) 10/02/16 06:10 MCH 31.1 pg (27.0-31.0) H 10/02/16 06:10 MCHC 33.8 g/dL (33.0-37.0) 10/02/16 06:10 RDW 13.6 % (11.5-14.5) 10/02/16 06:10 Plt Count 274 K/uL (130-400) 10/02/16 06:10 MPV 8.9 fl (7.2-11.7) 10/02/16 06:10 Neut % (Auto) 55.6 % (50.0-75.0) 10/02/16 06:10 Lymph % (Auto) 29.0 % (20.0-40.0) 10/02/16 06:10 [place] % (Auto) 8.3 % (0.0-10.0) 10/02/16 06:10 Eos % (Auto) 6.1 % (0.0-4.0) H 10/02/16 06:10 Baso % (Auto) 1.0 % (0.0-2.0) 10/02/16 06:10 Neut # 3.4 K/uL (1.8-7.0) 10/02/16 06:10 Lymph # 1.8 K/uL (1.0-4.3) 10/02/16 06:10 [place] # 0.5 K/uL (0.0-0.8) 10/02/16 06:10 Eos # 0.4 K/uL (0.0-0.7) 10/02/16 06:10 Baso # 0.1 K/uL (0.0-0.2) 10/02/16 06:10 PT 12.4 Seconds (9.8-13.1) 10/02/16 06:10 INR 1.1 (0.9-1.2) 10/02/16 06:10 APTT 37.4 Seconds (25.6-37.1) H D 10/02/16 06:10 Sodium 142 mmol/l (132-148) 10/02/16 06:10 Potassium 3.5 MMOL/L (3.6-5.0) L 10/02/16 06:10 Chloride 112 mmol/L (98-107) H 10/02/16 06:10 Carbon Dioxide 23 mmol/L (22-30) 10/02/16 06:10 Anion Gap 11 (10-20) 10/02/16 06:10 BUN 12 mg/dl (7-17) 10/02/16 06:10 Creatinine 1.0 mg/dL (0.7-1.2) 10/02/16 06:10 Est GFR ( Amer) > 60 10/02/16 06:10 Est GFR (Non-Af Amer) 58 10/02/16 06:10 Random Glucose 96 mg/dL (65-105) 10/02/16 06:10 Calcium 8.7 mg/dL (8.4-10.2) 10/02/16 06:10 Total Bilirubin 0.4 mg/dl (0.2-1.3) 10/01/16 17:50 AST 35 U/L (14-36) 10/01/16 17:50 ALT 50 U/L (9-52) 10/01/16 17:50 Alkaline Phosphatase 79 U/L (38-126) 10/01/16 17:50 Total Protein 7.9 G/DL (6.3-8.2) 10/01/16 17:50 Albumin 4.4 g/dL (3.5-5.0) 10/01/16 17:50 Globulin 3.5 gm/dL (2.2-3.9) 10/01/16 17:50 Albumin/Globulin Ratio 1.3 (1.0-2.1) 10/01/16 17:50 Triglycerides 362 mg/DL (0-149) H 10/02/16 06:10 Cholesterol 215 mg/dL (0-199) H 10/02/16 06:10 LDL Cholesterol Direct 111 mg/dL (0-129) 10/02/16 06:10 HDL Cholesterol 36 MG/DL (30-70) 10/02/16 06:10 Homocysteine 10.2 umol/L ( <10.4) 10/02/16 06:10 Serum HCG, Qual Negative (NEGATIVE) 10/01/16 21:45 Urine Color Yellow (YELLOW) 10/01/16 16:53 Urine Clarity Clear (Clear) 10/01/16 16:53 Urine pH 6.0 (5.0-8.0) 10/01/16 16:53 Ur Specific [place] 1.016 (1.003-1.030) 10/01/16 16:53 Urine Protein Negative mg/dL (NEGATIVE) 10/01/16 16:53 Urine Glucose (UA) Neg mg/dL (Normal) 10/01/16 16:53 Urine Ketones Negative mg/dL (NEGATIVE) 10/01/16 16:53 Urine Blood Negative (NEGATIVE) 10/01/16 16:53 Urine Nitrate Negative (NEGATIVE) 10/01/16 16:53 Urine Bilirubin Negative (NEGATIVE) 10/01/16 16:53 Urine Urobilinogen 0.2-1.0 mg/dL (0.2-1.0) 10/01/16 16:53 Ur Leukocyte Esterase Neg [place]/uL (Negative) 10/01/16 16:53 Urine RBC (Auto) 2 /hpf (0-3) 10/01/16 16:53 Urine Microscopic WBC 1 /hpf (0-5) 10/01/16 16:53 Ur Squamous Epith Cells 1 /hpf (0-5) 10/01/16 16:53 Urine Bacteria Rare (<OCC) 10/01/16 16:53 BRENDA Screen Negative (Negative) 10/02/16 06:10 BRENDA Titer TEST NOT PERFORMED 10/02/16 06:10 BRENDA Titer 2 TEST NOT PERFORMED 10/02/16 06:10 BRENDA Pattern TEST NOT PERFORMED 10/02/16 06:10 BRENDA Pattern 2 TEST NOT PERFORMED 10/02/16 06:10 - Hospital Course Hospital Course: 51 yr old F admitted for RUE severe pain and swelling and found to have acute unprovoked RUE superficial vein thrombosis and RLE femoral DVT with PMHx including HIV (VL: 40, CD4: 747/39 [09/07/16]), spinal stenosis, anxiety, mood disorder, previous bilateral LE DVT. Patient was anticoagulated and pain managed with PO meds. Vascular was on board, started patient on Eliquis 5mg PO BID. Patient was discharged stable with instructions to continue Eliquis 5mg PO BID, follow up with Dr. Worley- cardiology/vascular within 1-2 weeks, follow up with Dr. Klein-hematology/oncology within 1-2 weeks, follow up with Dr. Collier within 1 week, take the rest of your home meds as prescribed. - Date & Time of H&P Date of H&P: 10/01/16 Time of H&P: 18:47 Discharge Exam - Head Exam Head Exam: NORMAL INSPECTION - Eye Exam Eye Exam: EOMI - ENT Exam ENT Exam: Mucous Membranes Moist - Neck Exam Neck exam: Full Rom - Respiratory Exam Respiratory Exam: Clear to PA & Lateral, NORMAL BREATHING PATTERN - Cardiovascular Exam Cardiovascular Exam: REGULAR RHYTHM, +S1, +S2 - GI/Abdominal Exam GI & Abdominal Exam: Normal Bowel Sounds, Soft (obese) - Extremities Exam Extremities exam: full ROM, joint swelling (RUE: improved Joint Swelling (right medial epicondyle area), minimal tenderness (of RUE from elbow to wrist, swelling and mild erythema at elbow, palpable cord along medial forearm) - Back Exam Back exam: absent: CVA tenderness (L), CVA tenderness (R) - Neurological Exam Neurological exam: Alert, CN II-XII Intact, Oriented x3 - Psychiatric Exam Psychiatric exam: Normal Affect, Normal Mood - Skin Skin Exam: Dry, Intact, Warm Discharge Plan - Discharge Medications Prescriptions: Apixaban [Eliquis] 5 mg PO Q12 #60 tab - Follow Up Plan Condition: STABLE Disposition: HOME/ ROUTINE Instructions: Deep Venous Thrombosis (DC), Venous Thromboembolism (DC) Additional Instructions: -Start Eliquis 5mg PO BID. Advised patient to pickup medication today as she has to take next dose tonight. -Follow up with Dr. Worley- cardiology/vascular within 1-2 weeks -Follow up with Dr. Klein-hematology/oncology within 1-2 weeks -Follow up with Dr. Collier within 1 week. -Take the rest of your home meds as prescribed. Referrals: Baldomero Klein MD [Staff Provider] - Adam Collier MD [Staff Provider] - Philippe Worley MD [Staff Provider] - <KraigMayi - Last Filed: 10/05/16 10:37> Provider - Provider Date of Admission: 10/01/16 17:31 Attending physician: Riana Rodriguez MD Hospital Course - Lab Results Lab Results: Most Recent Lab Values WBC 6.2 K/uL (4.8-10.8) 10/02/16 06:10 RBC 3.81 Mil/uL (3.80-5.20) 10/02/16 06:10 Hgb 11.9 g/dL (12.0-16.0) L 10/02/16 06:10 Hct 35.2 % (34.0-47.0) 10/02/16 06:10 MCV 92.2 fl (81.0-99.0) 10/02/16 06:10 MCH 31.1 pg (27.0-31.0) H 10/02/16 06:10 MCHC 33.8 g/dL (33.0-37.0) 10/02/16 06:10 RDW 13.6 % (11.5-14.5) 10/02/16 06:10 Plt Count 274 K/uL (130-400) 10/02/16 06:10 MPV 8.9 fl (7.2-11.7) 10/02/16 06:10 Neut % (Auto) 55.6 % (50.0-75.0) 10/02/16 06:10 Lymph % (Auto) 29.0 % (20.0-40.0) 10/02/16 06:10 [place] % (Auto) 8.3 % (0.0-10.0) 10/02/16 06:10 Eos % (Auto) 6.1 % (0.0-4.0) H 10/02/16 06:10 Baso % (Auto) 1.0 % (0.0-2.0) 10/02/16 06:10 Neut # 3.4 K/uL (1.8-7.0) 10/02/16 06:10 Lymph # 1.8 K/uL (1.0-4.3) 10/02/16 06:10 [place] # 0.5 K/uL (0.0-0.8) 10/02/16 06:10 Eos # 0.4 K/uL (0.0-0.7) 10/02/16 06:10 Baso # 0.1 K/uL (0.0-0.2) 10/02/16 06:10 PT 12.4 Seconds (9.8-13.1) 10/02/16 06:10 INR 1.1 (0.9-1.2) 10/02/16 06:10 APTT 37.4 Seconds (25.6-37.1) H D 10/02/16 06:10 Protein C Activity 128 % (70-180) 10/02/16 06:10 Protein S Activity 57 % (60-140) L 10/02/16 06:10 Antithrombin III Activ 104 % activity (80-120) 10/02/16 06:10 Sodium 142 mmol/l (132-148) 10/02/16 06:10 Potassium 3.5 MMOL/L (3.6-5.0) L 10/02/16 06:10 Chloride 112 mmol/L (98-107) H 10/02/16 06:10 Carbon Dioxide 23 mmol/L (22-30) 10/02/16 06:10 Anion Gap 11 (10-20) 10/02/16 06:10 BUN 12 mg/dl (7-17) 10/02/16 06:10 Creatinine 1.0 mg/dL (0.7-1.2) 10/02/16 06:10 Est GFR ( Amer) > 60 10/02/16 06:10 Est GFR (Non-Af Amer) 58 10/02/16 06:10 Random Glucose 96 mg/dL (65-105) 10/02/16 06:10 Calcium 8.7 mg/dL (8.4-10.2) 10/02/16 06:10 Total Bilirubin 0.4 mg/dl (0.2-1.3) 10/01/16 17:50 AST 35 U/L (14-36) 10/01/16 17:50 ALT 50 U/L (9-52) 10/01/16 17:50 Alkaline Phosphatase 79 U/L (38-126) 10/01/16 17:50 Total Protein 7.9 G/DL (6.3-8.2) 10/01/16 17:50 Albumin 4.4 g/dL (3.5-5.0) 10/01/16 17:50 Globulin 3.5 gm/dL (2.2-3.9) 10/01/16 17:50 Albumin/Globulin Ratio 1.3 (1.0-2.1) 10/01/16 17:50 Triglycerides 362 mg/DL (0-149) H 10/02/16 06:10 Cholesterol 215 mg/dL (0-199) H 10/02/16 06:10 LDL Cholesterol Direct 111 mg/dL (0-129) 10/02/16 06:10 HDL Cholesterol 36 MG/DL (30-70) 10/02/16 06:10 Homocysteine 10.2 umol/L ( <10.4) 10/02/16 06:10 Serum HCG, Qual Negative (NEGATIVE) 10/01/16 21:45 Urine Color Yellow (YELLOW) 10/01/16 16:53 Urine Clarity Clear (Clear) 10/01/16 16:53 Urine pH 6.0 (5.0-8.0) 10/01/16 16:53 Ur Specific [place] 1.016 (1.003-1.030) 10/01/16 16:53 Urine Protein Negative mg/dL (NEGATIVE) 10/01/16 16:53 Urine Glucose (UA) Neg mg/dL (Normal) 10/01/16 16:53 Urine Ketones Negative mg/dL (NEGATIVE) 10/01/16 16:53 Urine Blood Negative (NEGATIVE) 10/01/16 16:53 Urine Nitrate Negative (NEGATIVE) 10/01/16 16:53 Urine Bilirubin Negative (NEGATIVE) 10/01/16 16:53 Urine Urobilinogen 0.2-1.0 mg/dL (0.2-1.0) 10/01/16 16:53 Ur Leukocyte Esterase Neg [place]/uL (Negative) 10/01/16 16:53 Urine RBC (Auto) 2 /hpf (0-3) 10/01/16 16:53 Urine Microscopic WBC 1 /hpf (0-5) 10/01/16 16:53 Ur Squamous Epith Cells 1 /hpf (0-5) 10/01/16 16:53 Urine Bacteria Rare (<OCC) 10/01/16 16:53 BRENDA Screen Negative (Negative) 10/02/16 06:10 BRENDA Titer TEST NOT PERFORMED 10/02/16 06:10 BRENDA Titer 2 TEST NOT PERFORMED 10/02/16 06:10 BRENDA Pattern TEST NOT PERFORMED 10/02/16 06:10 BRENDA Pattern 2 TEST NOT PERFORMED 10/02/16 06:10 [id number] Ab <9 KARINE (<=20) 10/02/16 06:00 Beta-2 GPI IgG Ab <9 [facility]U (<=20) 10/02/16 06:00 Beta-2 GPI IgM Ab <9 [facility] (<=20) 10/02/16 06:00 Phosphatidylserine IgG <10 U/mL (<10) 10/02/16 06:00 Phosphatidylserine IgA <20 U/mL (<20) 10/02/16 06:00 Phosphatidylserine IgM <25 U/mL (<25) 10/02/16 06:00 Discharge Exam - Additional Findings Additional findings: ATTEDNING NOTE - ADDENDUM PATIENT SEEN AND EXAMINED. CASE DISCUSSED WITH RESIDENT. AGREE WITH FINDINGS AND PLAN.
[2016-10-05 05:06] LABS: B2 GLYCOPROTEIN I AB(IGA) <9 SAU (<=20); B2 GLYCOPROTEIN I AB(IGG) <9 SGU (<=20); B2 GLYCOPROTEIN I AB(IGM) <9 SMU (<=20)
[2016-10-05 05:48] LABS: PHOSPHATIDYLSERINE AB IGA <20 U/mL (<20); PHOSPHATIDYLSERINE AB IGG <10 U/mL (<10); PHOSPHATIDYLSERINE AB IGM <25 U/mL (<25)
[2016-10-06 05:19] LABS: CARDIOLIPIN AB (IGA) <11 APL (<=11); CARDIOLIPIN AB (IGG) <14 GPL (<=14); CARDIOLIPIN AB (IGM) <12 MPL (<=12)
== END 2016-10-04 15:39 | disposition home or self-care (01) | DRG 131 ==
LOC: H.ER 12:10 → H.ERHOLD 17:31 → H.MEDSURG1 20:45
PROVIDERS: ADMIT Family Medicine Geriatric Medicine; ATTEND Family Medicine Geriatric Medicine
DX: I82.611 Acute embolism and thrombosis of superficial veins of right upper extremity (principal); I82.403 Acute embolism and thrombosis of unspecified deep veins of lower extremity, bilateral; I10 Essential (primary) hypertension; I82.413 Acute embolism and thrombosis of femoral vein, bilateral; I82.621 Acute embolism and thrombosis of deep veins of right upper extremity; F39 Unspecified mood [affective] disorder; Z21 Asymptomatic human immunodeficiency virus [HIV] infection status; F41.9 Anxiety disorder, unspecified; G47.00 Insomnia, unspecified; Z79.01 Long term (current) use of anticoagulants; Z79.899 Other long term (current) drug therapy; Z86.718 Personal history of other venous thrombosis and embolism; M48.00 Spinal stenosis, site unspecified